=== PATIENT | male | born 1940 | race Caucasian/White ===

== ENCOUNTER 2023-06-08 08:33 | Outpatient (CLI) | payer MEDICARE | END 2023-06-08 08:34 | disposition home or self-care (01) | LOC: BICCT 08:33 | PROVIDERS: ATTEND Internal Medicine | DX: R06.89 Other abnormalities of breathing (principal); E78.01 Familial hypercholesterolemia; I65.22 Occlusion and stenosis of left carotid artery; R53.83 Other fatigue | CPT/HCPCS: 75571; 93880 ==

== ENCOUNTER 2024-05-31 12:55 | Outpatient (CLI) | payer MEDICARE | END 2024-05-31 12:56 | disposition home or self-care (01) | LOC: SCSMRI 12:55 | PROVIDERS: ATTEND Orthopaedic Surgery | DX: M51.36 Other intervertebral disc degeneration, lumbar region (principal); M48.061 Spinal stenosis, lumbar region without neurogenic claudication; M41.9 Scoliosis, unspecified; M47.816 Spondylosis without myelopathy or radiculopathy, lumbar region; M47.817 Spondylosis without myelopathy or radiculopathy, lumbosacral region; M47.815 Spondylosis without myelopathy or radiculopathy, thoracolumbar region; M51.35 Other intervertebral disc degeneration, thoracolumbar region; M48.05 Spinal stenosis, thoracolumbar region | CPT/HCPCS: 72148 ==

== ENCOUNTER 2025-07-16 15:04 | Outpatient (CLI) | payer MEDICARE | END 2025-07-16 15:05 | disposition home or self-care (01) | LOC: BICMAMMO 15:04 | PROVIDERS: ATTEND Internal Medicine | DX: Z13.820 Encounter for screening for osteoporosis (principal); M81.0 Age-related osteoporosis without current pathological fracture; M85.88 Other specified disorders of bone density and structure, other site | CPT/HCPCS: 77080 ==